=== PATIENT | male | born 1995 | race African-American/Black ===

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

== ENCOUNTER 2020-03-17 12:11 | Emergency (ER) | payer OTHER ==
[~2020-03-17] VITALS: Ht 177.8 cm; Wt 174.2 kg
[~2020-03-17 12:11] MED LIST changes: +IBUPROFEN 600600 M1 PO; +NORFLEX100 MG PO
[2020-03-17] MEDS ORDERED: VOLTAREN GEL 1100 G2 TOP (13:18)
[2020-03-17 13:52] VITALS: BP 175/122
== END 2020-03-17 13:52 | disposition home or self-care (01) ==
LOC: ER 12:11
DX: M77.8 Other enthesopathies, not elsewhere classified (principal); M25.531 Pain in right wrist; I10 Essential (primary) hypertension; J45.909 Unspecified asthma, uncomplicated; Z79.899 Other long term (current) drug therapy; Z88.0 Allergy status to penicillin

== ENCOUNTER 2020-07-07 16:35 | Emergency (ER) | payer OTHER ==
[~2020-07-07] VITALS: Ht 172.7 cm; Wt 162.4 kg
[~2020-07-07 16:35] MED LIST changes: +VOLTAREN GEL 1100 G2 TOP
[2020-07-07] MEDS ORDERED: MOBIC7.5 MG PO (17:15)
[2020-07-07 17:55] VITALS: BP 142/68
== END 2020-07-07 17:56 | disposition home or self-care (01) ==
LOC: ER 16:35
DX: M79.672 Pain in left foot (principal); M25.572 Pain in left ankle and joints of left foot; I10 Essential (primary) hypertension; J45.909 Unspecified asthma, uncomplicated; Z79.1 Long term (current) use of non-steroidal anti-inflammatories (NSAID); Z79.899 Other long term (current) drug therapy; Z88.0 Allergy status to penicillin

== ENCOUNTER 2020-08-23 22:19 | Emergency (ER) | payer OTHER ==
[~2020-08-23] VITALS: Ht 177.8 cm; Wt 169.7 kg
[~2020-08-23 22:19] MED LIST changes: +MOBIC7.5 MG PO
[2020-08-23 22:50] LABS: ABSOLUTE NEUTROPHILS 3.5 thou/uL (1.4-8.2); BASOPHILS 0.9 % (0.0-2.0); EOSINOPHILS 1.8 % (0.0-3.0); HEMOGLOBIN 14.2 gm/dL (14.0-18.0); MCH 26.4 pg (26.0-34.0); MCHC 32.3 g/dL (28.0-37.0); MCV 81.7 fL (80.0-100.0); MONOCYTES 9.1 % (1.0-8.0); PLATELET COUNT 274 thou/uL (150-400); POLYS 53.2 % (36.0-66.0); RBC 5.39 mil/uL (4.50-6.00); RDW 13.5 % (10.5-14.5); WBC 6.6 thou/uL (4.0-11.0)
[2020-08-23 23:04] LABS: CALCIUM 8.8 mg/dL (8.5-10.1); CREATININE 1.1 mg/dL (0.7-1.3); POTASSIUM 3.7 mmol/L (3.5-5.1)
[2020-08-23 23:08] LABS: ALBUMIN 3.4 g/dL (3.4-5.0); TOTAL BILIRUBIN 0.4 mg/dL (0.2-1.0); TOTAL PROTEIN 7.1 g/dL (6.4-8.2)
[2020-08-23] MEDS ORDERED: METFORMIN HCL500 M3 PO (23:21)
[2020-08-23] MEDS ORDERED: ABILIFY 5 MG TAB5 MG PO (23:21)
[2020-08-23] MEDS ORDERED: LISINOPRIL20 MG PO (23:22)
[2020-08-23] MEDS ORDERED: LIPITOR 20 MG T20 M1 PO (23:22)
[2020-08-23] MEDS ORDERED: DESYREL150 MG PO (23:22)
[2020-08-23 23:58] VITALS: BP 144/86
--- NOTE | 2020-08-24 07:00 | EKG ---
[address] [place] [address] ELECTROCARDIOGRAM REPORT Name: JAGDISH JOHNSON Room #: DEP [facility]#: [id number] Admission: 08/23/20 Attend Phys: Discharge: 08/23/20 Date of : [birth year] Report #: [id number] [facility] ED Test Date: 2020-08-23 Test Time: 22:27:22 Pat Name: JAGDISH JOHNSON Department: Room: Gender: Dual Rate Supervisor: zafar : 1995 Requested By: Jennifer Gupta Order Number: [id number] MD: Jamari Sylvester Measurements Intervals Morrice Rate: 77 P: 44 MT: 162 QRS: 36 QRSD: 78 T: 14 QT: 373 QTc: 423 Interpretive Statements Sinus rhythm Atrial premature complex Borderline T abnormalities, inferior leads No previous ECG available for comparison Electronically Signed On 08-24-2020 7:00:24 CDT by Jamari Sylvester [email or web address] <ELECTRONICALLY SIGNED> By: Jamari Sylvester MD, [facility] 08/24/20 [id number] Jamari Sylvester MD, FACC /EPI
== END 2020-08-23 23:59 | disposition home or self-care (01) ==
LOC: ER 22:19
PROVIDERS: Emergency Medicine
DX: R10.13 Epigastric pain (principal); R79.89 Other specified abnormal findings of blood chemistry; J45.909 Unspecified asthma, uncomplicated; I10 Essential (primary) hypertension; F12.90 Cannabis use, unspecified, uncomplicated; Z88.0 Allergy status to penicillin; Z79.899 Other long term (current) drug therapy